=== PATIENT | female | born 1960 | race Hispanic/Latino ===

== ENCOUNTER 2017-07-20 12:47 | Observation (INO) | payer BC ==
[2017-07-20] MEDS ORDERED: ONDANSETRON HCL/PF 2 MG/ML VIAL IV ONE (13:00)
[2017-07-20] MEDS ORDERED: ONDANSETRON HCL/PF 2 MG/ML VIAL ONE (13:16)
[2017-07-20 13:26] LABS: Hematocrit 36.5 % (37.0-47.0); Mean Cell Volume 87.5 fl (78-100); Mean Corpuscular Hemoglobin 31.2 pg (27-31); Mean Corpuscular Hgb Conc 35.6 g/dl (32-36); Mean Platelet Volume 9.4 fl (6.0-9.5); Neutrophil % 53.9 % (42-75.0); Platelet Count 279 K/mm3 (150-450); Red Blood Count 4.17 M/mm3 (4.2-5.4); Red Cell Distribution Width 13.1 % (11.5-14.0)
[2017-07-20 13:39] LABS: Partial Thrombolplastin Time 23.4 Seconds (24-32)
[2017-07-20 13:45] LABS: ALT 30 U/L (19-67); AST 20 U/L (0-48); Alkaline Phosphatase * 100 U/L (50-170); Anion Gap 18.9 mmol/L (6.8-13.8); BUN/Creatinine Ratio 23.6 (9.0-21.6); Bilirubin, Total 0.2 mg/dL (0.0-1.1); Blood Urea Nitrogen 21 mg/dL (3-23); Ca. Corrected For Albumin 8.9 mg/dL (8.4-10.2); Calcium * 9.2 mg/dL (7.9-10.9); Carbon Dioxide 22.9 mmol/L (24-32.6); Chloride 103 mmol/L (97-106); Glucose * 110 mg/dL (70-110); Magnesium 1.8 mg/dL (1.2-2.8); Potassium 2.8 mmol/L (3.4-4.6); Sodium 142 mmol/L (132-142); Total Protein 7.7 gm/dL (6.2-8.2); Troponin I Less than 0.017 ng/ml (0.00-0.10)
[2017-07-20] MEDS ORDERED: diphenhydrAMINE HCL 50 MG/ML VIAL IV ONE (13:53)
[2017-07-20] MEDS ORDERED: METOCLOPRAMIDE HCL 5 MG/ML VIAL IV ONE (13:53)
[2017-07-20] MEDS ORDERED: NORMAL SALINE 1,000 ML IV ONE (13:53)
[2017-07-20] MEDS ORDERED: diphenhydrAMINE HCL 50 MG/ML VIAL ONE (13:54)
[2017-07-20] MEDS ORDERED: METOCLOPRAMIDE HCL 5 MG/ML VIAL ONE (13:54)
[2017-07-20] MEDS: POTASSIUM CHLORIDE 100 ML IV SCH ×4 (14:07→18:47)
--- NOTE | 2017-07-20 15:05 | ERNOTE ---
Neuro HPI ER Record Presenting Symptoms: confusion Time Seen by Provider: 07/20/17 13:02 Source: family, EMS Exam Limitations: no limitations Immunizations: IMMUNIZATION HX Immunizations Up to Date Yes Allergies/Adverse Reactions: Allergies Allergy/AdvReac Type Severity Reaction Status Date / Time Penicillins Allergy Verified 07/20/17 13:34 - History of Present Illness Narrative: Patient was brought in by ambulance service because she was apparently very weak and family states she was confused. She apparently has not been eating or drinking for several days, however she was recently seen at urgent care and was told she had a sinus infection as well as what they stated was strep throat, however she was not tested. Patient arrives with a headache and photophobia, and she does appear to be somewhat confused. Review of Systems - Review of Systems Constitutional: Present: See HPI EYE: Present: no symptoms reported ENT: Present: no symptoms reported Respiratory: Present: no symptoms reported Cardiology: Present: no symptoms reported Gastrointestinal/Abdominal: Present: no symptoms reported Genitourinary: Present: no symptoms reported Musculoskeletal: Present: no symptoms reported Skin: Present: no symptoms reported Neurological: Present: headache Endocrine: Present: no symptoms reported Hematologic/Lymphatic: Present: no symptoms reported Psych: Present: no symptoms reported - Patient's Past Medical History Patient History - Medical: No pertinent hx Patient History - Cardiac/Respiratory: Hyperlipidemia Patient History - Cancer: No Hx of Cancer Patient History - Surgical Procedures: Patient History - Other: None - Social History Living Situations: home - Immunizations Immunizations Up to Date: Yes Physical Exam - Physical Exam General Appearance: Present: wd/wn, alert, moderate distress Head Exam: Present: normal inspection, no evidence of injury Eye Exam: Normal inspection: bilateral, PERRL: bilateral Ears, Nose, Throat: Present: normal pharynx, dry mucous membranes Neck: Present: normal inspection, nontender Respiratory: Present: no respiratory distress, normal breath sounds, no accessory muscle use, chest nontender, lungs clear Cardiovascular/Chest: Present: regular rate, rhythm, no murmur, normal peripheral pulses Gastrointestinal/Abdominal: Present: normal bowel sounds, nontender, nondistended, soft, no organomegaly Rectal Exam: Present: deferred Back Exam: Present: normal inspection, normal range of motion Extremity Exam: Present: normal inspection, non-tender, no edema, normal range of motion Neurological Exam: Present: alert, normal mood/affect, no motor/sensory deficits , disoriented to place, disoriented to situation, other - patient has no evidence of meningismus, negative Kernig's and negative Brudzinski's Skin Exam: Present: normal color, warm/dry Lymphatic Exam: Present: no adenopathy ED Progress - Results and Orders Patient's Lab Results:: I have reviewed the patient's lab results. - Vital Signs Patient's Vital Signs:: I have reviewed the patient's vital signs. Vital Signs: Vital Signs 07/20/17 12:50 Temperature 35.1 C L Pulse Rate 82 Respiratory 15 Rate Blood Pressure 194/102 O2 Sat by Pulse 99 Oximetry - EKG EKG: NSR EKG read: Interp. by me - X-Ray X-Ray #1 X-Ray: chest Interpretation: Reviewed by me - CT/Ultrasound CT/Ultrasound Narrative: CT of the head was reviewed by me - Progress/Reassessment Chief Complaint: Altered Mental Status Plan - Plan Plan: Patient does not present a very clear clinical picture. She apparently has not been eating or drinking much for the past 24 hours and arrived here with possible TIA-like symptoms, uncontrolled hypertension and a headache with photophobia. She states that she's had migraines in the past however family states they don't know any clear history of migraines. Patient was given 1 L normal saline, 50 mg of Benadryl and 10 mg Reglan IV and her headache improved, her nausea resolved and her blood pressure returned to the normal range. Patient states that she was diagnosed with a sinus infection however she has not started any antibiotics. Patient will be admitted for possible TIA, IV hydration and correction of the blood imbalance and she was given 1 g Rocephin IV in the emergency department for the likely sinus infection. I suspect some component of hypertensive encephalopathy is being part of what the family described as confusion. The overwhelming majority of her confusion improved her blood pressure returned to baseline. Departure Clinical Impression: Dehydration, Hypertensive encephalopathy, Hypokalemia Hypertension Qualifiers: Hypertension type: essential hypertension Qualified Code(s): I10 - Essential ( primary) hypertension - Departure Disposition: [facility] Condition: Fair
[2017-07-20 15:12] LABS: Urine Appearance Clear; Urine Bacteria None Seen; Urine Bilirubin Negative (NEGATIVE); Urine Blood Negative /ul (NEGATIVE); Urine Color Yellow; Urine Ketone Negative (NEGATIVE); Urine Nitrite Negative (NEGATIVE); Urine Protein Negative (NEGATIVE); Urine RBC None Seen /hpf (0-5); Urine Specific Gravity 1.015 SP.GR. (1.005-1.010); Urine Urobilinogen Normal (NORMAL); Urine WBC None Seen /hpf (0-5); Urine pH 7.5 pH (5.0-7.0)
[2017-07-20] MEDS ORDERED: NORMAL SALINE 1,000 ML IV PRN (15:30)
[2017-07-20] MEDS ORDERED: FLU VACC QS2017-18(6MOS UP)/PF 60 MCG/0.5 ML SYRINGE IM ONE (16:28)
[2017-07-20] MEDS: ACETAMINOPHEN 325 MG TABLET PO PRN (17:47)
--- NOTE | 2017-07-20 19:32 | HP ---
Chief Complaint - Chief Complaint Date of Service: 07/20/17 Time of Service: 21:02 Chief Complaint: confusion History of Present Illness: Patient is a 57 year old pt of an outside provider who presented to the ER this afternoon with complaints of confusion. Per EMR "patient was brought in by ambulance service because she was apparently very weak and family states she was confused. She apparently has not been eating or drinking for several days, however she was recently seen at urgent care and was told she had a sinus infection as well as what they stated was strep throat, however she was not tested. Patient arrives with a headache and photophobia, she does appear to be somewhat confused." Family is not present at this time, but pt states that she feels very unclear about what led up to all of this. She endorses she recently seen at the walk in clinic for sore throat, sinus drainage, pressure, and mild ear ache. There she was dx with sinus infection and sent home with prescriptions for: prednisone 20mg and Doxycycline 100mg. Pt states since then is when her confusion started. Overall she hasn't been feeling well...not eating or drinking. Endorses nausea, but no emeisis. Denies dysuria, slurred speech, weakness, cough, fever, recent sick contacts or travel. Denies any recent headaches or nose bleeds. State that she used to get frequent headaches but relates those to stress. She was recently diagnosed with hypothyroidism which she is on her first month of Synthroid for. Head CT in the ER did not reveal any abnormalities. She was initially hypertension with SBP in the 190's, following IV hydration, Benadryl, and Zofran it has lowered and has remained in the 130's. Laboratory findings were significant for WBC 13 and a potassium of 2.8. She will be admitted for further treatment of her hypokalemia including IV potassium replacement and workup of her confused state. - Patient's Past Medical History Patient History - Medical: Depression, Hypothyroidism, Other - bladder issues Patient History - Cancer: No Hx of Cancer Patient History - Surgical Procedures: Patient History - Other: None LMP (females 10-50): Menopausal - Family History Mother Family History - Medical: Diabetes Type 2 Family History - Cardiac/Respiratory: CHF Family History - Cancer: No pertinent family hx Father Family History - Medical: Diabetes Type 2 Family History - Cardiac/Respiratory: No pertinent hx Family History - Cancer: Bone - Social History Living Situations: home Abuse History: No History of abuse Psych History: Hx of Depression Smoking Status: Never smoker Have you smoked in the past 12 months: No Alcohol Use: rarely Drug Use: none - Immunizations Immunizations Up to Date: No Hx Pneumococcal Vaccination: No History of Influenza Vaccine: No Review Of Systems (GEN) - Review of Systems Generalized/Overall Review: Present: No Symptoms Reported EENTM: Present: No Symptoms Reported Respiratory: Present: No Symptoms Reported Cardiac: Present: No Symptoms Reported Abdominal: Present: No Symptoms Reported Genitourinary: Present: No Symptoms Reported Musculoskeletal: Present: No Symptoms Reported Neurological: Present: No Symptoms Reported Skin: Present: No Symptoms Reported Endocrine: Present: No Symptoms Reported Immunizations: IMMUNIZATION HX Immunizations Up to Date Yes Allergies/Adverse Reactions: Allergies Allergy/AdvReac Type Severity Reaction Status Date / Time Penicillins Allergy Verified 07/20/17 13:34 Home Medications: HOME MEDICATIONS Amitriptyline HCl 75 mg PO HS 07/20/17 [Last Taken 07/19/17 20:30] Doxycycline Monohydrate [Mondoxyne Nl] 100 mg PO BID 07/20/17 [Last Taken Unknown] Levothyroxine Sodium [Levo-T] 25 mcg PO DAILY 07/20/17 [Last Taken 07/20/17 05: 30] Pentosan Polysulfate Sodium [Elmiron] 100 mg PO TID 07/20/17 [Last Taken ] Venlafaxine HCl [Venlafaxine HCl ER] 75 mg PO DAILY 07/20/17 [Last Taken 07:30] predniSONE [Prednisone] 2 tab PO DAILY 07/20/17 [Last Taken Unknown] Exam - Exam Vital Signs: Vital Signs - Last Taken Temp 36.1 C L 07/20/17 16:20 Pulse 87 07/20/17 18:16 Resp 18 07/20/17 16:20 BP 137/75 07/20/17 16:20 Pulse Ox 100 RA 07/20/17 16:20 Constitutional: Present: Alert, Oriented x3, Cooperative, No distress ENT Exam: Present: normal ENT inspection, hearing grossly normal, moist mucous membranes Eye Exam: bilateral eye: normal inspection, PERRL Back Exam: Present: normal inspection, no CVA tenderness, no vertebral tenderness Respiratory: Present: chest non-tender, lungs clear, normal breath sounds, no respiratory distress, no accessory muscle use Cardiovascular/Chest: Present: normal peripheral pulses, regular rate, rhythm, no chest tenderness, no edema, no gallop, no JVD, no murmur Peripheral Pulses: dorsalis-pedis (R): 2+, dorsalis-pedis (L): 2+, radial (R): 2 +, radial (L): 2+ Abdomen: Present: Normal bowel sounds, soft, nontender, nondistended, no rebound tenderness, no hepatospenomegaly, no masses Extremity: Present: normal range of motion, non-tender, normal inspection, no pedal edema, no calf tenderness, normal capillary refill Skin Exam: Present: normal color, warm/dry, no cyanosis Lymphatic: Present: no adenopathy Neurologic: Present: no motor/sensory deficits, alert, normal mood/affect, oriented x 3 Appearance: Present: appropriate appearance, appropriate insight, neat, no memory impairment Eye contact: Present: cooperative, good eye contact, normal speech Thoughts: Present: normal thought pattern, no apparent hallucination Diagnostic Studies: Abnormal Lab Results 07/20/17 Range/Units 16:00 Lactic Acid, Venous 2.2 H* (0.4-1.9) mmol/L Laboratory Results Laboratory Tests 07/20/17 07/20/17 07/20/17 13:18 13:18 13:18 WBC 13.0 H Hgb 13.0 Hct 36.5 L Plt Count 279 Immature Gran % (Auto) 0.50 H PT 10.0 INR (Anticoag Therapy) 1.00 PTT ([place]) 23.4 L Sodium 142 Potassium 2.8 L Chloride 103 Carbon Dioxide 22.9 L BUN 21 Creatinine 0.89 Lactic Acid, Venous Calcium 9.2 Magnesium 1.8 Total Bilirubin 0.2 AST 20 ALT 30 Ammonia Troponin I Less than 0.017 Total Protein 7.7 Albumin 4.0 Group A Strep Rapid 07/20/17 07/20/17 07/20/17 13:18 13:18 14:18 WBC Hgb Hct Plt Count Immature Gran % (Auto) PT INR (Anticoag Therapy) PTT ([place]) Sodium Potassium Chloride Carbon Dioxide BUN Creatinine Lactic Acid, Venous 2.8 H* Calcium Magnesium Total Bilirubin AST ALT Ammonia Less than 17.0 Troponin I Total Protein Albumin Group A Strep Rapid Negative Assessment/Plan - Assessment/Plan (1) Hypertensive encephalopathy Assessment: Related to uncontrolled HTN upon arrival. No previous history of HTN, has remained with SBP in the 130's since admission. Could be related to TIA. Will continue to monitor overnight. Problem: Acute (2) Dehydration Assessment: Secondary to poor PO intake. IV replacement provided. Will encourage PO intake. Problem: Acute (3) Hypokalemia Assessment: Pt potassium 2.8 on admission, could be due to poor dietary intake recently. Will replace with IV potassium and repeat levels following. Problem: Acute (4) Hypothyroidism Assessment: Pt recently diagnosed, on first month of Synthroid. Will check TSH level here and resume home regimen of 25mcg. Problem: Chronic (5) Sinus infection Assessment: Pt with prior diagnoses of sinus infection. Without any s/s on this admission, no sinus drainage or tenderness, has remained afebrile. Slight leukocytosis without shift, most likely due to dehydrated state. Due to pt believing her symptoms began following starting Doxycyline and Prednisone I am reluctant to resume them. Will repeat labs in the am, monitor for fever and if needed re- evaluate the need for additional medication at that time. Problem: Resolved
[2017-07-20 19:37] LABS: Cocaine Ur Negative (NEGATIVE); Urine Barbiturate Negative (NEGATIVE); Urine Benzodiazepines Negative (NEGATIVE); Urine Opiates Negative (NEGATIVE); Urine PCP Negative (NEGATIVE); Urine THC Negative (NEGATIVE)
[2017-07-20] MEDS: PENTOSAN POLYSULFATE SODIUM 100 MG PO SCH (20:47)
[2017-07-20] MEDS ORDERED: AMITRIPTYLINE HCL 25 MG TABLET PO SCH (21:00)
[2017-07-20 21:22] LABS: ALT 24 U/L (19-67); AST 21 U/L (0-48); Albumin * 3.4 gm/dl (3.4-5.0); Alkaline Phosphatase * 86 U/L (50-170); Anion Gap 12.5 mmol/L (6.8-13.8); BUN/Creatinine Ratio 19.6 (9.0-21.6); Bilirubin, Total 0.1 mg/dL (0.0-1.1); Blood Urea Nitrogen 18 mg/dL (3-23); Ca. Corrected For Albumin 8.5 mg/dL (8.4-10.2); Calcium * 8.3 mg/dL (7.9-10.9); Chloride 111 mmol/L (97-106); Glucose * 104 mg/dL (70-110); Potassium 4.5 mmol/L (3.4-4.6); Sodium 147 mmol/L (132-142); TSH * 11.674 uIU/mL (0.358-3.74); Total Protein 6.6 gm/dL (6.2-8.2)
[2017-07-20 22:20] LABS: Hemoglobin 11.9 gm/dL (12.5-16.0); Mean Cell Volume 90.9 fl (78-100); Mean Corpuscular Hemoglobin 30.9 pg (27-31); Mean Platelet Volume 10.4 fl (6.0-9.5); Neutrophil # 5.4 K/mm3 (1.3-6.0); Neutrophil % 52.7 % (42-75.0); Platelet Count 271 K/mm3 (150-450); Red Blood Count 3.85 M/mm3 (4.2-5.4); Red Cell Distribution Width 13.5 % (11.5-14.0); White Blood Count 10.2 K/mm3 (4.0-10.5)
[2017-07-21 05:52] LABS: Hematocrit 32.4 % (37.0-47.0); Hemoglobin 10.8 gm/dL (12.5-16.0); Mean Cell Volume 92.3 fl (78-100); Mean Corpuscular Hemoglobin 30.8 pg (27-31); Mean Corpuscular Hgb Conc 33.3 g/dl (32-36); Neutrophil # 2.9 K/mm3 (1.3-6.0); Platelet Count 230 K/mm3 (150-450); Red Blood Count 3.51 M/mm3 (4.2-5.4); White Blood Count 7.1 K/mm3 (4.0-10.5)
[2017-07-21 06:06] LABS: BUN/Creatinine Ratio 21.3 (9.0-21.6); Bilirubin, Total 0.2 mg/dL (0.0-1.1); Ca. Corrected For Albumin 8.6 mg/dL (8.4-10.2); Calcium * 8.1 mg/dL (7.9-10.9); Carbon Dioxide 26.6 mmol/L (24-32.6); Chol/HDL Risk Ratio 3.5 mg/dL (3.3-4.4); Potassium 4.6 mmol/L (3.4-4.6); Total Protein 5.9 gm/dL (6.2-8.2)
--- NOTE | 2017-07-21 06:14 | DS ---
<Ayana Cunha - Last Filed: 07/21/17 06:14> (1) Hypertensive encephalopathy Problem: Acute (2) Dehydration Problem: Acute (3) Hypokalemia Problem: Acute (4) Hypothyroidism Problem: Chronic (5) Sinus infection Problem: Resolved Description of Stay: Patient is a 57 year old pt of an outside provider who presented to the ER this afternoon with complaints of confusion. Per EMR "patient was brought in by ambulance service because she was apparently very weak and family states she was confused. She apparently has not been eating or drinking for several days, however she was recently seen at urgent care and was told she had a sinus infection as well as what they stated was strep throat, however she was not tested. Patient arrives with a headache and photophobia, she does appear to be somewhat confused." Family is not present at this time, but pt states that she feels very unclear about what led up to all of this. She endorses she recently seen at the walk in clinic for sore throat, sinus drainage, pressure, and mild ear ache. There she was dx with sinus infection and sent home with prescriptions for: prednisone 20mg and Doxycycline 100mg. Pt states since then is when her confusion started. Overall she hasn't been feeling well...not eating or drinking. Endorses nausea, but no emeisis. Denies dysuria, slurred speech, weakness, cough, fever, recent sick contacts or travel. Denies any recent headaches or nose bleeds. State that she used to get frequent headaches but relates those to stress. She was recently diagnosed with hypothyroidism which she is on her first month of Synthroid for. Head CT in the ER did not reveal any abnormalities. She was initially hypertension with SBP in the 190's, following IV hydration, Benadryl, and Zofran it has lowered and has remained in the 130's. Laboratory findings were significant for WBC 13 and a potassium of 2.8. She was admitted for further treatment of her hypokalemia including IV potassium replacement and workup of her confused state. During her hospital stay overnight her potassium was replace and prior hypokalemia has resolved. She remained normotensive and afebrile. Antibiotics and steriods were not resumed. Fasting lipid panel was preformed. Procedures Performed: none Discharge Disposition: Home self care Disposition: Home self-care Condition: Good Discharge Activity: Activity as tolerated Discharge Diet: Low salt, Low fat/chol Referrals: Tami Abernathy DO [Primary Care Provider] - One Week Problem Oriented Discharge Instructions to Patient/Family: Sinusitis, Adult, [id number] Print Language (Mozambican or Macedonian Available): Mozambican Additional Patient Instructions (free text): Follow-up with PCP, Dr. Abernathy, within 1-2 weeks on 07-28-17 @ 9:30am. Check TSH and Free T4 in 6-8 weeks and fax results to Dr. Abernathy's office Prescriptions (Any new or edited meds): Azithromycin 500 mg PO DAILY 5 Days #10 tablet Levothyroxine Sodium [Levo-T] 50 mcg PO DAILY #30 tablet Complete Home Medications List: Complete Home Medication List: Amitriptyline HCl 75 mg PO HS 07/20/17 Pentosan Polysulfate Sodium [Elmiron] 100 mg PO TID 07/20/17 Venlafaxine HCl [Venlafaxine HCl ER] 75 mg PO DAILY 07/20/17 Azithromycin 500 mg PO DAILY 5 Days #10 tablet 07/21/17 Levothyroxine Sodium [Levo-T] 50 mcg PO DAILY #30 tablet 07/21/17 Amb Orders for Discharge: T4 Free * Time Frame: 6 Weeks, Location: Determined By Patient TSH * Time Frame: 6 Weeks, Location: Determined By Patient <Sheba Eaton - Last Filed: 07/21/17 09:19> (1) Toxic metabolic encephalopathy Problem: Resolved (2) Steroid euphoria Problem: Resolved (3) Steroid side effects Problem: Resolved Qualifiers: Encounter type: initial encounter Qualified Code(s): T38.0X5A - Adverse effect of glucocorticoids and synthetic analogues, initial encounter Description of Stay: ADMISSION DATE: 07/20/2017 DISCHARGE DATE: 07/21/2017 ADMISSION HPI by KAELA Foss: Patient is a 57 year old pt of an outside provider who presented to the ER this afternoon with complaints of confusion. Per EMR "patient was brought in by ambulance service because she was apparently very weak and family states she was confused. She apparently has not been eating or drinking for several days, however she was recently seen at urgent care and was told she had a sinus infection as well as what they stated was strep throat, however she was not tested. Patient arrives with a headache and photophobia, she does appear to be somewhat confused." Family is not present at this time, but pt states that she feels very unclear about what led up to all of this. She endorses she recently seen at the walk in clinic for sore throat, sinus drainage, pressure, and mild ear ache. There she was dx with sinus infection and sent home with prescriptions for: prednisone 20mg and Doxycycline 100mg. Pt states since then is when her confusion started. Overall she hasn't been feeling well...not eating or drinking. Endorses nausea, but no emeisis. Denies dysuria, slurred speech, weakness, cough, fever, recent sick contacts or travel. Denies any recent headaches or nose bleeds. State that she used to get frequent headaches but relates those to stress. She was recently diagnosed with hypothyroidism which she is on her first month of Synthroid for. Head CT in the ER did not reveal any abnormalities. She was initially hypertension with SBP in the 190's, following IV hydration, Benadryl, and Zofran it has lowered and has remained in the 130's. Laboratory findings were significant for WBC 13 and a potassium of 2.8. She will be admitted for further treatment of her hypokalemia including IV potassium replacement and workup of her confused state. HOSPITAL COURSE: The patient was admitted with acute encephalopathy which was felt to be most likely secondary to steroids. This medication was held and the following morning , the patient felt much better and her mental status had improved and was essentially back to baseline. The patient was discharged home in stable condition. FOLLOW-UP APPOINTMENTS: -PCP, Dr. Abernathy, within 1-2 weeks -Check TSH and Free T4 in 6-8 weeks and fax results to Dr. Aguilar office NEW OR CHANGED MEDICATIONS: -Levothyroxine 50mcg PO daily -Azithromycin 500mg PO daily X 5 days DISCONTINUED MEDICATIONS: -Doxycycline -Prednisone RADIOLOGY REPORTS: Head CT without contrast on 07/20/2017: No acute intracranial process. Single view CXR on 07/20/2017: No acute cardiopulmonary process. Procedures Performed: none Results and Findings: Laboratory Tests 07/20/17 07/20/17 07/20/17 13:18 14:18 14:50 WBC Hgb MCV Plt Count Sodium Plasma Sodium Potassium Chloride Carbon Dioxide Anion Gap BUN Creatinine Est GFR (Non-Af Amer) BUN/Creatinine Ratio Random Glucose Calcium Calcium Adj for Albumin Total Bilirubin AST ALT Alkaline Phosphatase Ammonia Less than 17.0 C-Reactive Prot, Quant Triglycerides Cholesterol LDL Cholesterol VLDL Cholesterol HDL Cholesterol Cholesterol/HDL Ratio TSH Urine Color Urine Appearance Urine pH Ur Specific [place] Urine Protein Urine Glucose (UA) Urine Ketones Urine Blood Urine Nitrate Urine Bilirubin Urine Urobilinogen Ur Leukocyte Esterase Urine RBC Urine WBC Ur Epithelial Cells Urine Bacteria Urine Culture Comments Urine Opiates Screen Negative Barbiturate Screen Negative Ur Phencyclidine Scrn Negative Urine Amphetamine Negative U Benzodiazepines Scrn Negative Urine Cocaine Screen Negative Urine Marijuana (THC) Negative Group A Strep Rapid Negative 07/20/17 07/20/17 07/21/17 15:00 20:50 05:40 WBC 7.1 D Hgb 10.8 L MCV 92.3 Plt Count 230 Sodium Plasma Sodium Potassium Chloride Carbon Dioxide Anion Gap BUN Creatinine Est GFR (Non-Af Amer) BUN/Creatinine Ratio Random Glucose Calcium Calcium Adj for Albumin Total Bilirubin AST ALT Alkaline Phosphatase Ammonia C-Reactive Prot, Quant Less than 0.2 Triglycerides Cholesterol LDL Cholesterol VLDL Cholesterol HDL Cholesterol Cholesterol/HDL Ratio TSH 11.674 H Urine Color Yellow Urine Appearance Clear Urine pH 7.5 Ur Specific [place] 1.015 Urine Protein Negative Urine Glucose (UA) Negative Urine Ketones Negative Urine Blood Negative Urine Nitrate Negative Urine Bilirubin Negative Urine Urobilinogen Normal Ur Leukocyte Esterase Negative Urine RBC None seen Urine WBC None seen Ur Epithelial Cells None seen Urine Bacteria None seen Urine Culture Comments No culture indicated Urine Opiates Screen Barbiturate Screen Ur Phencyclidine Scrn Urine Amphetamine U Benzodiazepines Scrn Urine Cocaine Screen Urine Marijuana (THC) Group A Strep Rapid 07/21/17 05:40 WBC Hgb MCV Plt Count Sodium 145 H Plasma Sodium 145 H Potassium 4.6 Chloride 111 H Carbon Dioxide 26.6 Anion Gap 12.0 BUN 17 Creatinine 0.80 Est GFR (Non-Af Amer) 78 BUN/Creatinine Ratio 21.3 Random Glucose 85 Calcium 8.1 Calcium Adj for Albumin 8.6 Total Bilirubin 0.2 AST 17 ALT 23 Alkaline Phosphatase 81 Ammonia C-Reactive Prot, Quant Triglycerides 128 Cholesterol 189 LDL Cholesterol 110 VLDL Cholesterol 26 HDL Cholesterol 53 Cholesterol/HDL Ratio 3.5 TSH Urine Color Urine Appearance Urine pH Ur Specific [place] Urine Protein Urine Glucose (UA) Urine Ketones Urine Blood Urine Nitrate Urine Bilirubin Urine Urobilinogen Ur Leukocyte Esterase Urine RBC Urine WBC Ur Epithelial Cells Urine Bacteria Urine Culture Comments Urine Opiates Screen Barbiturate Screen Ur Phencyclidine Scrn Urine Amphetamine U Benzodiazepines Scrn Urine Cocaine Screen Urine Marijuana (THC) Group A Strep Rapid Discharge Disposition: Home self care Discharge Activity: Activity as tolerated Discharge Diet: General/regular food
[2017-07-21] MEDS ORDERED: LEVOTHYROXINE SODIUM 25 MCG TABLET PO SCH (07:00)
[2017-07-21 07:05] VITALS: BP 104/66
[2017-07-21] MEDS: ACETAMINOPHEN 325 MG TABLET PO PRN (07:17)
[2017-07-21] MEDS: PENTOSAN POLYSULFATE SODIUM 100 MG PO SCH (08:44)
[2017-07-21] MEDS ORDERED: VENLAFAXINE HCL 37.5 MG CAP.SR.24H PO SCH (09:00)
== END 2017-07-21 10:03 | disposition home or self-care (01) ==
LOC: ER 12:47 → INTOOBSV 15:49 → MERGE 15:49 → MS 15:49
PROVIDERS: ADMIT Internal Medicine; ATTEND Internal Medicine
PROC: 0T9B7ZZ Drainage of Bladder, Via Natural or Artificial Opening (ICD-10-PCS; principal; 2017-07-20)
DX: I67.4 Hypertensive encephalopathy (principal); E03.9 Hypothyroidism, unspecified; E86.0 Dehydration; E87.6 Hypokalemia; J32.9 Chronic sinusitis, unspecified; I10 Essential (primary) hypertension
CPT/HCPCS: 36415; 51701; 70450; 71010; 80053; 80061; 80307; 81001; 82140; 83605; 83735; 84443; 84484; 85025; 85610; 85652; 85730; 86140; 87040; 87081; 87430; 90471; 90686; 93005; 96360; 96361; 96365; 96366; 96367; 96375; 99285; G0378; J2405